=== PATIENT | female | born 1970 | race Caucasian/White ===

== ENCOUNTER 2017-06-15 11:10 | Emergency (ER) | payer BC ==
[2017-06-15 13:46] LABS: BASOPHILS 0.5 % (0-2); HEMATOCRIT 42.5 % (36.0-48.0); HEMOGLOBIN 14.3 g/dL (12-16); IMMATURE GRANULOCYTES 0.2 % (0-5); LYMPHOCYTES 12.7 % (15-50); MCH 31.2 pg (26.0-34.0); MCHC 33.6 g/dL (31.0-37.0); MCV 92.8 fL (80.0-100.0); MEAN PLATELET VOLUME 10.1 fL (7.4-10.4); MONOCYTES 9.3 % (2-11); NEUTROPHILS 74.3 % (40-80); PLATELET COUNT 291 10x3/uL (130-400); RBC 4.58 10x6/uL (4.00-5.40); RDW 12.8 % (11.5-14.5); WBC 12.4 10x3/uL (4.8-10.8)
[2017-06-15 14:02] LABS: ALBUMIN 4.1 g/dL (3.4-5.0); ANION GAP 14.4 mmol/L (8-16); BILIRUBIN - TOTAL 0.35 mg/dL (0.2-1.3); CALCIUM 9.2 mg/dL (8.5-10.1); CARBON DIOXIDE 29.6 mmol/L (21.0-32.0); CREATININE - SERUM 0.9 mg/dL (0.6-1.3); PROTEIN - SERUM 8.1 g/dL (6.4-8.2)
== END 2017-06-15 15:37 | disposition home or self-care (01) ==
LOC: D.ER 11:10
PROVIDERS: Nurse Practitioner Family
DX: J06.9 Acute upper respiratory infection, unspecified (principal); J20.9 Acute bronchitis, unspecified